=== PATIENT | female | born 1950 | race Caucasian/White ===

== ENCOUNTER 2021-01-18 16:52 | Emergency (ER) | payer MEDICARE ==
[2021-01-18] MEDS ORDERED: FLEXERIL PO (20:31)
[2021-01-18] MEDS ORDERED: Voltaren Gel 1 % TOP (20:31)
== END 2021-01-18 20:45 | disposition home or self-care (01) ==
LOC: ER1 16:52
DX: R07.81 Pleurodynia (principal); M25.512 Pain in left shoulder; W00.0XXA Fall on same level due to ice and snow, initial encounter; W06.XXXA Fall from bed, initial encounter
CPT/HCPCS: 71111; 73030; 96372; 99283; J1885

== ENCOUNTER 2021-02-24 07:45 | Emergency (ER) | payer MEDICARE ==
[~2021-02-24 07:45] MED LIST: FLEXERIL PO; Voltaren Gel 1 % TOP
[2021-02-24 09:45] LABS: HEMOGLOBIN 13.4 gm/dl (12.3-15.3); RED BLOOD COUNT 4.32 M/UL (4.00-5.10)
[2021-02-24 11:13] LABS: BUN/CREATININE RATIO 15 (0-10)
[2021-02-24] MEDS ORDERED: BENZONATATE200 MG PO (11:40)
== END 2021-02-24 12:10 | disposition home or self-care (01) ==
LOC: ER1 07:45
PROVIDERS: Emergency Medicine
DX: J20.9 Acute bronchitis, unspecified (principal); Z90.49 Acquired absence of other specified parts of digestive tract; Z20.822 Contact with and (suspected) exposure to COVID-19
CPT/HCPCS: 71045; 80053; 80307; 81001; 85025; 87086; 93005; 99284; G0480; U0002

== ENCOUNTER → 2021-05-02 | Outpatient (CLI) | payer MEDICARE ==
[~2021-05-02] MED LIST changes: +BENZONATATE200 MG PO
== END ==
LOC: KOH-I 15:00
DX: M25.512 Pain in left shoulder (principal); M19.012 Primary osteoarthritis, left shoulder; R93.6 Abnormal findings on diagnostic imaging of limbs
CPT/HCPCS: 73221